=== PATIENT | female | born 1975 | race African-American/Black ===

== ENCOUNTER 2016-11-09 22:53 | Emergency (ER) | payer OTHER ==
[2016-11-10] MEDS ORDERED: ACETAMINOPHEN 325 MG TAB As Ordered ONE (00:37)
[2016-11-10] MEDS ORDERED: IBUPROFEN 800 MG TAB As Ordered ONE (00:37)
[2016-11-10] MEDS ORDERED: ALBUTEROL 90 MCG/ACT 8GM HFA INHALER As Ordered ONE (00:41)
--- NOTE | 2016-11-10 00:53 | EDDOCDS ---
Physician Documentation [facility] Name: Elham Medeiros Age: 41 yrs Sex: Female : 1975 Arrival Date: 11/09/2016 Time: 22:53 Bed Family 1 Private MD: Unknown Pcp Disposition: 11/10/16 00:46 Discharged to Home/Self Care. Impression: Acute upper respiratory infection, unspecified. - Condition is Stable. - Discharge Instructions: Fever, Adult, Upper Respiratory Infection, Adult. - Medication Reconciliation, Local Pharmacy Hours, Work Release Form - 2 day form. - Follow up: Private Physician; When: Call to arrange an appointment; Reason: Recheck today's complaints, Continuance of care. - Problem is new. - Symptoms are unchanged. Historical: - Allergies: mushrooms; - Home Meds: 1. lisinopril 5 mg Oral tab once daily - PMHx: DVT; Hypertension; - PSHx: none; - Social history: Smoking status: Patient uses tobacco products, heavy tobacco smoker. No barriers to communication noted, The patient speaks fluent Russian, Speaks appropriately for age. - Family history: Not pertinent. - : The pt / caregiver states he / she is not on anticoagulants. Home medication list is obtained from the patient. - Exposure Risk Screening:: None identified. 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 3 in. (160.02 cm) (R); 11/10 00:50 BP 148 / 75; Pulse 78; Resp 18; Temp 98.2(O); Pulse Ox 99% on R/A; Pain 0/10; jmb 11/09 22:55 Body Mass Index 40.74 (104.33 kg, 160.02 cm) dd6 MDM: 00:27 Ibuprofen 800 mg PO once ordered. mo1 00:27 Acetaminophen Tablet 975 mg PO once ordered. mo1 00:39 Ventolin Inhaler 2 puffs Inhalation once ordered. mo1 Administered Medications: 00:39 Drug: Ibuprofen 800 mg [ibuprofen 800 mg tablet (1 tabs)] Route: PO; mcp 00:39 Drug: Acetaminophen 975 mg [acetaminophen 325 mg tablet (3 tabs)] Route: PO; mcp 00:45 Drug: Ventolin 2 puffs [Ventolin HFA 90 mcg/actuation aerosol inhaler (2 puffs)] Route: mcp Inhalation; Signatures: Carlo Granda PA PA moJean Awan RN RN jmb Peters, Mary RN mcp MTDD
--- NOTE | 2016-11-10 00:53 | EDDOCDS ---
Nurse's Notes [facility] Name: Elham Medeiros Age: 41 yrs Sex: Female : 1975 Arrival Date: 11/09/2016 Time: 22:53 Bed Family 1 Private MD: Unknown Pcp Diagnosis: Acute upper respiratory infection, unspecified Presentation: 11/09 22:59 Presenting complaint: Patient states: Patient reports cough, fever, body aches and jmb chest tightness. Symptoms present for 3 days. NO medication taken. Adult Sepsis Screening: The patient does not have new or worsening altered mentation. Patient's respiratory rate is less than 22. Systolic blood pressure is greater than 100. Patient has a qSOFA score of 0- Negative Sepsis Screen. Suicide/Homicide risk assessment- the patient denies having any suicidal and/or homicidal ideations and does not present with any other emotional, behavioral or mental health complaints. Status: Patient is not a creative services coordinator or dependent. Transition of care: patient was not received from another setting of care. 22:59 Acuity: MILLA Level 4 [facility] 22:59 Method Of Arrival: Walkin/Carried/Asstd [facility] Triage Assessment: 23:00 General: Appears in no apparent distress, comfortable, Behavior is appropriate for age, jmb cooperative. Pain: Denies pain. HIV screening NA for this visit Offered previously. Neurological: Level of Consciousness is awake, alert, obeys commands, Oriented to person, place, time, Speech is normal, Facial symmetry appears normal, Facial symmetry: tongue is midline. Respiratory: Airway is patent Respiratory effort is even, unlabored, Respiratory pattern is regular, symmetrical. Derm: Skin is normal. Musculoskeletal: Range of motion intact in all extremities. 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 lisinopril 5 mg Oral tab once daily - PMHx: DVT; Hypertension; - PSHx: none; - Social history: Smoking status: Patient uses tobacco products, heavy tobacco smoker. No barriers to communication noted, The patient speaks fluent Australian, Speaks appropriately for age. - Family history: Not pertinent. - : The pt / caregiver states he / she is not on anticoagulants. Home medication list is obtained from the patient. - Exposure Risk Screening:: None identified. Screenin/14 00:50 Screening information is obtained from the patient. Fall risk: No risks identified. jmb Assistance ADL's: requires no assistance with activities of daily living. Abuse/DV Screen: The patient / caregiver reports he/she is: not in a situation that causes fear, pain or injury. Nutritional screening: No deficits noted. Advance Directives: Currently, there is no health care proxy. There is no active DNR order. There is no living will. home support is adequate. Assessment: 00:50 General: Patient instructed on discharge instructions. Patient asked if there were any jmb questions regarding discharge, patient stated no. Patient signed discharge instructions. Patient discharged in stable condition. . Vital Signs: 11/09 22:55 BP 155 / 95; Pulse 93; Resp 18; Temp 102.0(O); Pulse Ox 97% on R/A; Weight 104.33 kg dd6 (R); Height 5 ft. 3 in. (160.02 cm) (R); 11/10 00:50 BP 148 / 75; Pulse 78; Resp 18; Temp 98.2(O); Pulse Ox 99% on R/A; Pain 0/10; jmb 11/09 22:55 Body Mass Index 40.74 (104.33 kg, 160.02 cm) dd6 Vitals: 11/09 22:55 Log In Time: November 09, 2016 at 22:54. dd6 ED Course: 22:55 Patient visited by Angus Lazaro PCA. dd6 22:55 Unknown Pcp is Private Physician. dd6 22:55 Patient moved to Waiting dd6 22:57 Patient moved to Pre RCE dd6 23:00 Triage Initiated jmb 23:51 Patient moved to Family 1 [facility] 11/10 00:15 Carlo Granda PA is PHCP. mo1 00:15 Kendall Benjamin DO is Attending Physician. mo1 00:26 Patient visited by Carlo Granda PA. mo1 00:50 The patient / caregiver is instructed regarding the plan of care and ED course. jmb 00:50 No IV's were initiated during this patient's visit. No procedures done that require jmb assistance. Administered Medications: 00:39 Drug: Ibuprofen 800 mg [ibuprofen 800 mg tablet (1 tabs)] Route: PO; [facility] 00:39 Drug: Acetaminophen 975 mg [acetaminophen 325 mg tablet (3 tabs)] Route: PO; mcp 00:45 Drug: Ventolin 2 puffs [Ventolin HFA 90 mcg/actuation aerosol inhaler (2 puffs)] Route: mcp Inhalation; Order Results: There are currently no results for this order. Outcome: 00:46 Discharge ordered by Provider. mo1 00:50 Discharge Assessment: Patient awake, alert and oriented x 3. No cognitive and/or jmb functional deficits noted. Patient verbalized understanding of disposition instructions. Patient awake and alert. obeys commands, Oriented to person, place and time. Patient verbalized understanding of disposition instructions. Patient has no functional deficits. patient administered narcotics - no. The following High Risk Discharge criteria are identified: None. Discharged to home ambulatory, with family. Condition: stable. Discharge instructions given to patient, Instructed on discharge instructions, follow up and referral plans. Demonstrated understanding of instructions, Pt was receptive of discharge instructions/ teaching. No special radiology studies were completed. Property sent home with patient. 00:52 Patient left the ED. ketan Signatures: Julia Grimm, RN Angus Gardiner mcp, TANISHA CULLED FRUIT PACKER dd6 Carlo Granda PA PA mo1 Jean Rajan,INNA aceves MTDSulema
--- NOTE | 2016-11-12 01:53 | EDDOCDS ---
Physician Documentation [facility] Name: Elham Medeiros Age: 41 yrs Sex: Female : 1975 Arrival Date: 11/09/2016 Time: 22:53 Bed Family 1 Private MD: Unknown Pcp Disposition: 11/10/16 00:46 Discharged to Home/Self Care. Impression: Acute upper respiratory infection, unspecified. - Condition is Stable. - Discharge Instructions: Fever, Adult, Upper Respiratory Infection, Adult. - Medication Reconciliation, Local Pharmacy Hours, Work Release Form - 2 day form. - Follow up: Private Physician; When: Call to arrange an appointment; Reason: Recheck today's complaints, Continuance of care. - Problem is new. - Symptoms are unchanged. Historical: - Allergies: mushrooms; - Home Meds: 1. lisinopril 5 mg Oral tab once daily - PMHx: DVT; Hypertension; - PSHx: none; - Social history: Smoking status: Patient uses tobacco products, heavy tobacco smoker. No barriers to communication noted, The patient speaks fluent South Korean, Speaks appropriately for age. - Family history: Not pertinent. - : The pt / caregiver states he / she is not on anticoagulants. Home medication list is obtained from the patient. - Exposure Risk Screening:: None identified. 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 3 in. (160.02 cm) (R); 11/10 00:50 BP 148 / 75; Pulse 78; Resp 18; Temp 98.2(O); Pulse Ox 99% on R/A; Pain 0/10; jmb 11/09 22:55 Body Mass Index 40.74 (104.33 kg, 160.02 cm) dd6 MDM: 00:27 Ibuprofen 800 mg PO once ordered. mo1 00:27 Acetaminophen Tablet 975 mg PO once ordered. mo1 00:39 Ventolin Inhaler 2 puffs Inhalation once ordered. mo1 01:13 [facility] Payment Agreement was scanned into Ztail and attached to record. pm4 09:19 T-Sheet-- Draft Copy was scanned into Ztail and attached to record. [facility] Administered Medications: 00:39 Drug: Ibuprofen 800 mg [ibuprofen 800 mg tablet (1 tabs)] Route: PO; mcp 00:39 Drug: Acetaminophen 975 mg [acetaminophen 325 mg tablet (3 tabs)] Route: PO; mcp 00:45 Drug: Ventolin 2 puffs [Ventolin HFA 90 mcg/actuation aerosol inhaler (2 puffs)] Route: [facility] Inhalation; Signatures: Carlo Granda PA PA mo1 Jean Rajan RN RN Lamar Boggs Paul, Reg Reg pm4 Julia Grimm RN [facility] The chart was reviewed and I authenticate all verbal orders and agree with the evaluation and treatment provided.Attachments: 01:13 [facility] Payment Agreement pm4 09:19 T-Sheet-- Draft Copy [facility] Chart Complete MTDD
--- NOTE | 2016-11-12 01:53 | EDDOCDS ---
Physician Documentation [facility] Name: Elham Medeiros Age: 41 yrs Sex: Female : 1975 Arrival Date: 11/09/2016 Time: 22:53 Bed Family 1 Private MD: Unknown Pcp Disposition: 11/10/16 00:46 Discharged to Home/Self Care. Impression: Acute upper respiratory infection, unspecified. - Condition is Stable. - Discharge Instructions: Fever, Adult, Upper Respiratory Infection, Adult. - Medication Reconciliation, Local Pharmacy Hours, Work Release Form - 2 day form. - Follow up: Private Physician; When: Call to arrange an appointment; Reason: Recheck today's complaints, Continuance of care. - Problem is new. - Symptoms are unchanged. Historical: - Allergies: mushrooms; - Home Meds: 1. lisinopril 5 mg Oral tab once daily - PMHx: DVT; Hypertension; - PSHx: none; - Social history: Smoking status: Patient uses tobacco products, heavy tobacco smoker. No barriers to communication noted, The patient speaks fluent Ghanaian, Speaks appropriately for age. - Family history: Not pertinent. - : The pt / caregiver states he / she is not on anticoagulants. Home medication list is obtained from the patient. - Exposure Risk Screening:: None identified. 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 3 in. (160.02 cm) (R); 11/10 00:50 BP 148 / 75; Pulse 78; Resp 18; Temp 98.2(O); Pulse Ox 99% on R/A; Pain 0/10; jmb 11/09 22:55 Body Mass Index 40.74 (104.33 kg, 160.02 cm) dd6 MDM: 00:27 Ibuprofen 800 mg PO once ordered. mo1 00:27 Acetaminophen Tablet 975 mg PO once ordered. mo1 00:39 Ventolin Inhaler 2 puffs Inhalation once ordered. mo1 01:13 [facility] Payment Agreement was scanned into Quiet[employer] and attached to record. pm4 09:19 T-Sheet-- Draft Copy was scanned into Quietyme and attached to record. [facility] Administered Medications: 00:39 Drug: Ibuprofen 800 mg [ibuprofen 800 mg tablet (1 tabs)] Route: PO; mcp 00:39 Drug: Acetaminophen 975 mg [acetaminophen 325 mg tablet (3 tabs)] Route: PO; mcp 00:45 Drug: Ventolin 2 puffs [Ventolin HFA 90 mcg/actuation aerosol inhaler (2 puffs)] Route: [facility] Inhalation; Signatures: Carlo Granda PA PA mo1 Jean Rajan RN RN Lamar Boggs Paul, Reg Reg pm4 Julia Grimm RN [facility] The chart was reviewed and I authenticate all verbal orders and agree with the evaluation and treatment provided.Attachments: 01:13 [facility] [place] Payment Agreement pm4 09:19 T-Sheet-- Draft Copy [facility] Chart Complete MTDD
--- NOTE | 2016-11-12 01:53 | EDDOCDS ---
Nurse's Notes [facility] Name: Elham Medeiros Age: 41 yrs Sex: Female : 1975 Arrival Date: 11/09/2016 Time: 22:53 Bed Family 1 Private MD: Unknown Pcp Diagnosis: Acute upper respiratory infection, unspecified Presentation: 11/09 22:59 Presenting complaint: Patient states: Patient reports cough, fever, body aches and jmb chest tightness. Symptoms present for 3 days. NO medication taken. Adult Sepsis Screening: The patient does not have new or worsening altered mentation. Patient's respiratory rate is less than 22. Systolic blood pressure is greater than 100. Patient has a qSOFA score of 0- Negative Sepsis Screen. Suicide/Homicide risk assessment- the patient denies having any suicidal and/or homicidal ideations and does not present with any other emotional, behavioral or mental health complaints. 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 Transition of care: patient was not received from another setting of care. 22:59 Acuity: MILLA Level 4 [facility] 22:59 Method Of Arrival: Walkin/Carried/Asstd [facility] Triage Assessment: 23:00 General: Appears in no apparent distress, comfortable, Behavior is appropriate for age, jmb cooperative. Pain: Denies pain. HIV screening NA for this visit Offered previously. Neurological: Level of Consciousness is awake, alert, obeys commands, Oriented to person, place, time, Speech is normal, Facial symmetry appears normal, Facial symmetry: tongue is midline. Respiratory: Airway is patent Respiratory effort is even, unlabored, Respiratory pattern is regular, symmetrical. Derm: Skin is normal. Musculoskeletal: Range of motion intact in all extremities. 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 lisinopril 5 mg Oral tab once daily - PMHx: DVT; Hypertension; - PSHx: none; - Social history: Smoking status: Patient uses tobacco products, heavy tobacco smoker. No barriers to communication noted, The patient speaks fluent Dutch, Speaks appropriately for age. - Family history: Not pertinent. - : The pt / caregiver states he / she is not on anticoagulants. Home medication list is obtained from the patient. - Exposure Risk Screening:: None identified. Screenin/14 00:50 Screening information is obtained from the patient. Fall risk: No risks identified. jmb Assistance ADL's: requires no assistance with activities of daily living. Abuse/DV Screen: The patient / caregiver reports he/she is: not in a situation that causes fear, pain or injury. Nutritional screening: No deficits noted. Advance Directives: Currently, there is no health care proxy. There is no active DNR order. There is no living will. home support is adequate. Assessment: 00:50 General: Patient instructed on discharge instructions. Patient asked if there were any jmb questions regarding discharge, patient stated no. Patient signed discharge instructions. Patient discharged in stable condition. . Vital Signs: 11/09 22:55 BP 155 / 95; Pulse 93; Resp 18; Temp 102.0(O); Pulse Ox 97% on R/A; Weight 104.33 kg dd6 (R); Height 5 ft. 3 in. (160.02 cm) (R); 11/10 00:50 BP 148 / 75; Pulse 78; Resp 18; Temp 98.2(O); Pulse Ox 99% on R/A; Pain 0/10; jmb 11/09 22:55 Body Mass Index 40.74 (104.33 kg, 160.02 cm) dd6 Vitals: 11/09 22:55 Log In Time: November 09, 2016 at 22:54. dd6 ED Course: 22:55 Patient visited by Angus Lazaro PCA. dd6 22:55 Unknown Pcp is Private Physician. dd6 22:55 Patient moved to Waiting dd6 22:57 Patient moved to Pre RCE dd6 23:00 Triage Initiated jmb 23:51 Patient moved to Family 1 [facility] 11/10 00:15 Carlo Granda PA is PHCP. mo1 00:15 Kendall Benjamin DO is Attending Physician. mo1 00:26 Patient visited by Carlo Granda PA. mo1 00:50 The patient / caregiver is instructed regarding the plan of care and ED course. jmb 00:50 No IV's were initiated during this patient's visit. No procedures done that require jmb assistance. 01:13 [facility] Payment Agreement was scanned into Sendori and attached to record. pm4 09:19 T-Sheet-- Draft Copy was scanned into Sendori and attached to record. [facility] Administered Medications: 00:39 Drug: Ibuprofen 800 mg [ibuprofen 800 mg tablet (1 tabs)] Route: PO; mcp 00:39 Drug: Acetaminophen 975 mg [acetaminophen 325 mg tablet (3 tabs)] Route: PO; mcp 00:45 Drug: Ventolin 2 puffs [Ventolin HFA 90 mcg/actuation aerosol inhaler (2 puffs)] Route: [facility] Inhalation; Order Results: There are currently no results for this order. Outcome: 00:46 Discharge ordered by Provider. mo1 00:50 Discharge Assessment: Patient awake, alert and oriented x 3. No cognitive and/or jmb functional deficits noted. Patient verbalized understanding of disposition instructions. Patient awake and alert. obeys commands, Oriented to person, place and time. Patient verbalized understanding of disposition instructions. Patient has no functional deficits. patient administered narcotics - no. The following High Risk Discharge criteria are identified: None. Discharged to home ambulatory, with family. Condition: stable. Discharge instructions given to patient, Instructed on discharge instructions, follow up and referral plans. Demonstrated understanding of instructions, Pt was receptive of discharge instructions/ teaching. No special radiology studies were completed. Property sent home with patient. 00:52 Patient left the ED. jmb Signatures: Julia Grimm RN Angus Gardiner mcp, TELEPHONE INTERVIEWER TELEPHONE INTERVIEWER dd6 Carlo Granda PA PA mo1 Jean Rajan RN RN jmb Hoffert, Sarah seh Montondo, Paul, Reg Reg pm4 Chart Complete MTDD
== END 2016-11-10 00:52 | disposition home or self-care (01) ==
LOC: M ED 22:53
DX: J06.9 Acute upper respiratory infection, unspecified (principal); R50.9 Fever, unspecified; I10 Essential (primary) hypertension; Z86.718 Personal history of other venous thrombosis and embolism; F17.210 Nicotine dependence, cigarettes, uncomplicated; Z79.899 Other long term (current) drug therapy; Z91.018 Allergy to other foods

== ENCOUNTER 2019-12-22 22:41 | Emergency (ER) | payer OTHER, SELFPAY ==
[~2019-12-22] VITALS: Ht 157.5 cm; Wt 108.4 kg
--- NOTE | 2019-12-23 00:35 | REPVR ---
PROCEDURE INFORMATION: Exam: US Duplex Right Lower Extremity Veins, Limited Exam date and time: 12/22/2019 12:07 AM Age: 44 years old Clinical indication: Pain; Leg, lower; Right; Additional info: R/O dvt rle TECHNIQUE: Imaging protocol: Real-time Duplex ultrasound of the Right Lower Extremity with 2-D najera scale, color Doppler flow and spectral waveform analysis with image documentation. Limited exam was focused on the right lower extremity veins. COMPARISON: No relevant prior studies available. FINDINGS: Right deep veins: Unremarkable. The common femoral, femoral, proximal profunda femoral and popliteal veins are patent without thrombus. Normal Doppler waveforms. Normal compressibility and/or augmentation response. Right superficial veins: Unremarkable. Saphenofemoral junction is patent without thrombus. Soft tissues: Unremarkable. IMPRESSION: No DVT of the right lower extremity above the knee. Electronically signed by: Parish Castaneda On 12/23/2019 00:34:31 AM
[2019-12-23] MEDS ORDERED: TOBRADEX OPHTH SUSP 2.5 ML OD ONE (00:45)
[2019-12-23] MEDS ORDERED: TETRACAINE 0.5% OPHTH SOLN 4ML OD ONE (00:45)
[2019-12-23] MEDS ORDERED: traMADol 50 MG TAB (BULK 4 TAB ED) PO ONE (01:00)
[2019-12-23] MEDS ORDERED: traMADol 50 MG TAB PO ONE (01:00)
[2019-12-23 01:08] VITALS: BP 168/78
== END 2019-12-23 01:09 | disposition home or self-care (01) ==
LOC: M ED 22:41
DX: S86.911A Strain of unspecified muscle(s) and tendon(s) at lower leg level, right leg, initial encounter (principal); X58.XXXA Exposure to other specified factors, initial encounter; Y92.9 Unspecified place or not applicable; Z86.718 Personal history of other venous thrombosis and embolism; Z88.8 Allergy status to other drugs, medicaments and biological substances; Z91.048 Other nonmedicinal substance allergy status; Z91.018 Allergy to other foods

== ENCOUNTER 2022-07-09 13:13 | Emergency (ER) | payer MEDICAID ==
[~2022-07-09] VITALS: Ht 157.5 cm; Wt 100.0 kg
[2022-07-09 13:13] VITALS: BP 188/98
== END 2022-07-09 17:54 | disposition left against medical advice (07) ==
LOC: M ED 13:13
DX: Z53.21 Procedure and treatment not carried out due to patient leaving prior to being seen by health care provider (principal)

== ENCOUNTER → 2022-07-09 | Outpatient (REF) ==
[2022-07-10 05:07] LABS: RUBEOLA IgG ANTIBODY 21.4 AU/mL (Immune >16.4)
== END ==
LOC: M LAB 11:30
PROVIDERS: ATTEND Nurse Practitioner Adult Health
DX: Z02.1 Encounter for pre-employment examination (principal)

== ENCOUNTER → 2022-07-11 | Outpatient (REF) | payer OTHER, MEDICAID | LOC: M WUC 09:33 | PROVIDERS: ATTEND Physician Assistant | DX: R42 Dizziness and giddiness (principal) ==

== ENCOUNTER → 2022-11-25 | Outpatient (REF) | LOC: M LABSMTC 12:00 | PROVIDERS: ATTEND Family Medicine | DX: Z20.822 Contact with and (suspected) exposure to COVID-19 (principal) ==

== ENCOUNTER 2022-12-25 14:44 | Inpatient (IN) | payer MEDICAID, OTHER ==
[2022-12-25 15:45] VITALS: BP 168/86
[2022-12-25 16:00] VITALS: BP 168/86
[2022-12-25] MEDS ORDERED: CLOPIDOGREL 300 MG TAB (PLAVIX) PO STA (17:17)
[2022-12-25 17:32] LABS: BASO # 0.1 10^3/uL (0.0-0.2); BASO % 0.5 % (0.0-1.0); EOS # 0.3 10^3/uL (0.0-0.5); EOS % 3.4 % (0.0-3.0); HEMATOCRIT 36.3 % (36.0-47.0); HEMOGLOBIN 11.6 g/dl (12.0-15.5); LYMPH # 2.8 10^3/uL (1.5-5.0); LYMPH % 29.6 % (24.0-44.0); MEAN CORPUSCULAR HEMOGLOBIN 26.5 pg (27.0-33.0); MEAN CORPUSCULAR VOLUME 83.1 fl (80.0-96.0); MONO # 1.1 10^3/uL (0.0-0.8); MONO % 11.7 % (2.0-8.0); NEUTROPHILS # 5.2 10^3/uL (1.5-8.5); NEUTROPHILS % 54.5 % (36.0-66.0); PLATELET COUNT, AUTOMATED 315 10^3/uL (150-450); RED BLOOD COUNT 4.37 10^6/uL (4.00-5.40); WHITE BLOOD COUNT 9.5 10^3/uL (4.0-10.0)
[2022-12-25 17:40] LABS: ALT/SGPT 10 U/L (7.0-40); AST/SGOT 16 U/L (<34); BLOOD UREA NITROGEN 9 MG/DL (9-23); CALCIUM LEVEL 8.2 MG/DL (8.5-10.1); CARBON DIOXIDE LEVEL 26 MMOL/L (20-31); CHLORIDE LEVEL 105 MMOL/L (98-107); CREATININE FOR GFR 0.57 MG/DL (0.55-1.30); GLOMERULAR FILTRATION RATE > 60.0 (>58); GLUCOSE, FASTING 86 MG/DL (60-100); POTASSIUM SERUM 3.5 MMOL/L (3.5-5.1); SODIUM LEVEL 139 MMOL/L (136-145)
[2022-12-25 17:41] LABS: ALBUMIN 3.4 G/DL (3.2-5.2); ALKALINE PHOSPHATASE 95 U/L (46-116); BILIRUBIN,DIRECT 0.1 MG/DL (<0.4); BILIRUBIN,TOTAL 0.4 MG/DL (0.3-1.2); TOTAL PROTEIN 6.8 G/DL (5.7-8.2)
[2022-12-25 17:45] LABS: INR 1.09; PROTHROMBIN TIME 14.3 SECONDS (12.5-14.5)
[2022-12-25 17:46] LABS: PARTIAL THROMBOPLASTIN TIME 27.6 SECONDS (24.8-34.2)
[2022-12-25 17:51] LABS: ERYTHROCYTE SEDIMENTATION RATE 41 mm/hr (0-20)
[2022-12-25 17:56] LABS: CHOLESTEROL LEVEL 196 MG/DL (<200); CHOLESTEROL RISK RATIO 3.49 (<5); HDL CHOLESTEROL 56.1 MG/DL (>40); LDL CHOLESTEROL 124.3 MG/DL (<100); NON-HDL-C 140 MG/DL; TRIGLYCERIDES LEVEL 78 MG/DL (<150)
[2022-12-25 18:56] LABS: IRON (FE) 25 UG/DL (50-170); TOTAL IRON BINDING CAPACITY 416 UG/DL (250-425)
[2022-12-25 18:59] LABS: FERRITIN 11.4 NG/ML (7.3-270.7); FOLATE 10.9 NG/ML (>5.4); VITAMIN B12 LEVEL 647 PG/ML (211-911)
[2022-12-25 20:00] VITALS: BP 147/54
[2022-12-25] MEDS ORDERED: HOME MED LIST COMPLETE! XX SCH (20:25)
[2022-12-25] MEDS ORDERED: METO1TAB7 PO (20:25)
[2022-12-25] MEDS ORDERED: WOMETAB PO (20:25)
[2022-12-25 20:34] VITALS: BP 147/54
[2022-12-25] MEDS ORDERED: ACETAMINOPHEN TAB 650MG DOSE (2X325MG) PO PRN (20:55)
[2022-12-25] MEDS: ATORVASTATIN 20 MG TAB PO SCH (21:21)
[2022-12-25] MEDS: ENOXAPARIN 40MG/0.4ML SYRINGE (J1650 PER 10MG) SC SCH (21:22)
[2022-12-26] VITALS (7 sets, daily range): BP systolic 136–194; BP diastolic 70–98
[2022-12-26 05:13] LABS: HEMATOCRIT 35.3 % (36.0-47.0); HEMOGLOBIN 11.4 g/dl (12.0-15.5); MEAN CORPUSCULAR HEMOGLOBIN 26.8 pg (27.0-33.0); MEAN CORPUSCULAR HGB CONC 32.3 g/dl (32.0-36.5); MEAN CORPUSCULAR VOLUME 83.1 fl (80.0-96.0); PLATELET COUNT, AUTOMATED 295 10^3/uL (150-450); RED BLOOD COUNT 4.25 10^6/uL (4.00-5.40); WHITE BLOOD COUNT 9.7 10^3/uL (4.0-10.0)
[2022-12-26 05:38] LABS: BLOOD UREA NITROGEN 7 MG/DL (9-23); CALCIUM LEVEL 8.6 MG/DL (8.5-10.1); CARBON DIOXIDE LEVEL 24 MMOL/L (20-31); CHLORIDE LEVEL 106 MMOL/L (98-107); GLOMERULAR FILTRATION RATE > 60.0 (>58); GLUCOSE, FASTING 111 MG/DL (60-100); POTASSIUM SERUM 3.5 MMOL/L (3.5-5.1); SODIUM LEVEL 139 MMOL/L (136-145)
[2022-12-26] MEDS ORDERED: FERRIC CARBOXYMALTOSE INJ 750 MG, VIAL MATE ADAPTER 1 EACH in NS 250 ML IV ONE (09:00)
[2022-12-26] MEDS ORDERED: CHLORTHALIDONE 12.5MG PER 1/2 TABLET PO SCH (09:00)
[2022-12-26] MEDS: ASPIRIN 81MG CHEW TABLET PO SCH (09:04)
[2022-12-26] MEDS: CHLORTHALIDONE 25 MG TAB PO SCH (09:04)
[2022-12-26] MEDS: CLOPIDOGREL 75 MG TAB PO SCH (09:04)
[2022-12-26] MEDS: ENOXAPARIN 40MG/0.4ML SYRINGE (J1650 PER 10MG) SC SCH (21:46)
[2022-12-26] MEDS: ATORVASTATIN 20 MG TAB PO SCH (21:46)
[2022-12-27 01:00] VITALS: BP 160/78
[2022-12-27 05:21] LABS: HEMATOCRIT 37.1 % (36.0-47.0); MEAN CORPUSCULAR HEMOGLOBIN 26.6 pg (27.0-33.0); MEAN CORPUSCULAR HGB CONC 32.3 g/dl (32.0-36.5); MEAN CORPUSCULAR VOLUME 82.3 fl (80.0-96.0); PLATELET COUNT, AUTOMATED 316 10^3/uL (150-450); RED BLOOD COUNT 4.51 10^6/uL (4.00-5.40); WHITE BLOOD COUNT 11.3 10^3/uL (4.0-10.0)
[2022-12-27 05:52] VITALS: BP 154/98
[2022-12-27 05:54] LABS: BLOOD UREA NITROGEN 11 MG/DL (9-23); CALCIUM LEVEL 8.6 MG/DL (8.5-10.1); CARBON DIOXIDE LEVEL 26 MMOL/L (20-31); CHLORIDE LEVEL 105 MMOL/L (98-107); GLOMERULAR FILTRATION RATE > 60.0 (>58); GLUCOSE, FASTING 106 MG/DL (60-100); POTASSIUM SERUM 3.8 MMOL/L (3.5-5.1); SODIUM LEVEL 138 MMOL/L (136-145)
[2022-12-27 08:00] VITALS: BP 152/86
[2022-12-27] MEDS ORDERED: ATOR1TAB21 PO (08:44)
[2022-12-27] MEDS ORDERED: ASPI81CH8 PO (08:44)
[2022-12-27] MEDS ORDERED: CLOP75TA2 PO (08:45)
[2022-12-27] MEDS ORDERED: CHLO25TA PO (08:45)
[2022-12-27] MEDS: CLOPIDOGREL 75 MG TAB PO SCH (09:52)
[2022-12-27] MEDS: CHLORTHALIDONE 25 MG TAB PO SCH (09:52)
[2022-12-27] MEDS: ASPIRIN 81MG CHEW TABLET PO SCH (09:52)
[2022-12-27 10:39] LABS: DRVV SCREEN 36.9 SEC
[2023-01-01 12:08] LABS: ANCA-ATYPICAL <1:20 titer (Neg:<1:20); ANTI THROMBIN 3 ANTIGEN IMMUNO 91 % (72-124); ANTI THROMBIN 3 FUNCT ACTIVITY 115 % (75-135); ANTINUCLEAR ANTIBODIES DIRECT Negative (Negative); CARDIOLIPIN IGA ANTIBODY <9 APL U/mL (0-11); CARDIOLIPIN IGG ANTIBODY <9 GPL U/mL (0-14); CARDIOLIPIN IGM ANTIBODY <9 MPL U/mL (0-12); CYTOPLASMIC NEUTROP AB ANCA-C <1:20 titer (Neg:<1:20); F8 ACTIVITY FOR F8 PANEL 231 % (56-140); F8 ACTIVITY vWB FOR F8 PANEL 193 % (50-200); F8 ANTIGEN FOR F8 PANEL 277 % (50-200); PERINUCLEAR AB ANCA-P <1:20 titer (Neg:<1:20); PROTEIN C ANTIGEN 66 % (60-150); PROTEIN S ANTIGEN FREE 101 % (61-136); PROTEIN S ANTIGEN TOTAL 98 % (60-150)
== END 2022-12-27 10:21 | disposition home or self-care (01) | DRG 45 ==
LOC: M PCU 15:43
PROVIDERS: ADMIT Internal Medicine; ATTEND Student in an Organized Health Care Education/Training Program
DX: I63.9 Cerebral infarction, unspecified (principal); I10 Essential (primary) hypertension; D18.02 Hemangioma of intracranial structures; D50.9 Iron deficiency anemia, unspecified; F17.290 Nicotine dependence, other tobacco product, uncomplicated; E66.9 Obesity, unspecified; Z91.018 Allergy to other foods; Z88.8 Allergy status to other drugs, medicaments and biological substances; Z79.82 Long term (current) use of aspirin; Z79.899 Other long term (current) drug therapy

== ENCOUNTER → 2023-01-18 | Outpatient (CLI) | payer OTHER, MEDICAID ==
[~2023-01-18] MED LIST: AMLO2.5T3; ASPI81CH8 PO; ATOR1TAB21 PO; CHLO25TA PO; CLOP75TA2 PO; METO1TAB7 PO; ROSU5TAB5; WOMETAB PO
[2023-01-18 13:55] LABS: BLOOD UREA NITROGEN 13 MG/DL (9-23); CARBON DIOXIDE LEVEL 30 MMOL/L (20-31); CHLORIDE LEVEL 102 MMOL/L (98-107); CREATININE FOR GFR 0.72 MG/DL (0.55-1.30); GLOMERULAR FILTRATION RATE > 60.0 (>58); GLUCOSE, FASTING 194 MG/DL (60-100); MAGNESIUM LEVEL 1.9 MG/DL (1.8-2.4); POTASSIUM SERUM 4.1 MMOL/L (3.5-5.1); SODIUM LEVEL 138 MMOL/L (136-145)
== END ==
LOC: M WUC 09:32
PROVIDERS: ATTEND Physician Assistant
DX: M79.10 Myalgia, unspecified site (principal)

== ENCOUNTER → 2023-03-07 | Outpatient (REF) | payer OTHER, MEDICAID ==
[~2023-03-07] MED LIST changes: +NORV5TAB PO
== END ==
LOC: M SFHCLERA 17:19
PROVIDERS: ATTEND Physician Assistant
DX: J22 Unspecified acute lower respiratory infection (principal)

== ENCOUNTER 2023-03-08 16:12 | Emergency (ER) | payer MEDICAID, OTHER ==
[~2023-03-08] VITALS: Ht 157.5 cm; Wt 103.3 kg
[~2023-03-08 16:12] MED LIST changes: -NORV5TAB PO
[2023-03-08 17:12] LABS: BASO # 0.1 10^3/uL (0.0-0.2); BASO % 0.6 % (0.0-1.0); EOS # 0.3 10^3/uL (0.0-0.5); EOS % 2.4 % (0.0-3.0); HEMATOCRIT 41.1 % (36.0-47.0); HEMOGLOBIN 13.2 g/dl (12.0-15.5); LYMPH % 34.9 % (24.0-44.0); MEAN CORPUSCULAR HEMOGLOBIN 27.3 pg (27.0-33.0); MEAN CORPUSCULAR HGB CONC 32.1 g/dl (32.0-36.5); MEAN CORPUSCULAR VOLUME 85.1 fl (80.0-96.0); MONO # 0.7 10^3/uL (0.0-0.8); MONO % 6.3 % (2.0-8.0); NEUTROPHILS # 6.3 10^3/uL (1.5-8.5); NEUTROPHILS % 55.3 % (36.0-66.0); PLATELET COUNT, AUTOMATED 411 10^3/uL (150-450); RED BLOOD COUNT 4.83 10^6/uL (4.00-5.40); WHITE BLOOD COUNT 11.4 10^3/uL (4.0-10.0)
[2023-03-08 17:27] LABS: APPEARANCE, URINE CLEAR (CLEAR); BACTERIA, URINE AUTO 1+ (NEGATIVE); BILIRUBIN, URINE AUTO NEGATIVE (NEGATIVE); BLOOD, URINE BLOOD NEGATIVE (NEGATIVE); COLOR, URINE STRAW (YELLOW); GLUCOSE, URINE (UA) AUTO NEGATIVE (NEGATIVE); KETONE, URINE AUTO NEGATIVE (NEGATIVE); LEUKOCYTE ESTERASE, URINE AUTO TRACE (NEGATIVE); NITRITE, URINE AUTO NEGATIVE (NEGATIVE); PROTEIN, URINE AUTO NEGATIVE (NEGATIVE); RBC, URINE AUTO 0 /HPF (0-3); SPECIFIC GRAVITY URINE AUTO 1.003 (1.002-1.035); SQUAMOUS EPITHELIAL CELL UR AU 0 /HPF (0-6); UROBILINOGEN, URINE AUTO 0.2 mg/dL (0.0-2.0); WBC, URINE AUTO 1 /HPF (0-3)
[2023-03-08 17:31] LABS: ALBUMIN 3.7 G/DL (3.2-5.2); BILIRUBIN,DIRECT 0.1 MG/DL (<0.4); BILIRUBIN,TOTAL 0.3 MG/DL (0.3-1.2); TOTAL PROTEIN 7.4 G/DL (5.7-8.2)
[2023-03-08 17:46] LABS: POTASSIUM SERUM 3.1 MMOL/L (3.5-5.1)
[2023-03-08] MEDS ORDERED: POTASSIUM CHLORIDE 10MEQ SR TABLET PO ONE (18:40)
[2023-03-08] MEDS ORDERED: NORV5TAB PO (18:40)
[2023-03-08 18:53] VITALS: BP 186/92
== END 2023-03-08 18:57 | disposition home or self-care (01) ==
LOC: M ED 16:12
DX: B34.8 Other viral infections of unspecified site (principal); I10 Essential (primary) hypertension; E87.6 Hypokalemia; I45.10 Unspecified right bundle-branch block; K21.9 Gastro-esophageal reflux disease without esophagitis; F17.200 Nicotine dependence, unspecified, uncomplicated; Z86.79 Personal history of other diseases of the circulatory system; Z86.718 Personal history of other venous thrombosis and embolism; Z88.8 Allergy status to other drugs, medicaments and biological substances; Z91.02 Food additives allergy status; Z79.82 Long term (current) use of aspirin; Z79.899 Other long term (current) drug therapy

== ENCOUNTER → 2023-03-22 | Outpatient (CLI) | payer OTHER, MEDICAID ==
[~2023-03-22] MED LIST changes: +NORV5TAB PO
[2023-03-22 17:23] LABS: BASO # 0.1 10^3/uL (0.0-0.2); BASO % 0.5 % (0.0-1.0); EOS # 0.3 10^3/uL (0.0-0.5); EOS % 2.3 % (0.0-3.0); HEMATOCRIT 39.4 % (36.0-47.0); HEMOGLOBIN 12.4 g/dl (12.0-15.5); LYMPH # 3.3 10^3/uL (1.5-5.0); LYMPH % 27.2 % (24.0-44.0); MEAN CORPUSCULAR HEMOGLOBIN 27.6 pg (27.0-33.0); MEAN CORPUSCULAR HGB CONC 31.5 g/dl (32.0-36.5); MEAN CORPUSCULAR VOLUME 87.8 fl (80.0-96.0); MONO # 0.8 10^3/uL (0.0-0.8); MONO % 6.6 % (2.0-8.0); NEUTROPHILS # 7.5 10^3/uL (1.5-8.5); NEUTROPHILS % 63.1 % (36.0-66.0); PLATELET COUNT, AUTOMATED 409 10^3/uL (150-450); RED BLOOD COUNT 4.49 10^6/uL (4.00-5.40); WHITE BLOOD COUNT 11.9 10^3/uL (4.0-10.0)
[2023-03-22 17:45] LABS: TOTAL IRON BINDING CAPACITY 370 UG/DL (250-425)
[2023-03-22 17:46] LABS: ALBUMIN 3.8 G/DL (3.2-5.2); ALKALINE PHOSPHATASE 98 U/L (46-116); ALT/SGPT 14 U/L (7.0-40); AST/SGOT 15 U/L (<34); BILIRUBIN,TOTAL 0.5 MG/DL (0.3-1.2); BLOOD UREA NITROGEN 16 MG/DL (9-23); CALCIUM LEVEL 8.9 MG/DL (8.5-10.1); CARBON DIOXIDE LEVEL 31 MMOL/L (20-31); CHLORIDE LEVEL 100 MMOL/L (98-107); CREATININE FOR GFR 0.72 MG/DL (0.55-1.30); GLOMERULAR FILTRATION RATE > 60.0 (>58); GLUCOSE, FASTING 143 MG/DL (60-100); IRON (FE) 56 UG/DL (50-170); MAGNESIUM LEVEL 1.7 MG/DL (1.8-2.4); PERCENT SATURATION 15.1 % (13.2-45.0); POTASSIUM SERUM 3.4 MMOL/L (3.5-5.1); SODIUM LEVEL 139 MMOL/L (136-145); TOTAL PROTEIN 7.1 G/DL (5.7-8.2)
[2023-03-22 17:48] LABS: FERRITIN 140.5 NG/ML (7.3-270.7)
== END ==
LOC: M WUC 11:05
PROVIDERS: ATTEND Physician Assistant
DX: E87.6 Hypokalemia (principal); R60.9 Edema, unspecified